=== PATIENT | female | born 1940 | race American Indian/Alaskan Native ===

== ENCOUNTER 2018-08-02 21:30 | Emergency (ER) | payer MEDICARE ==
--- NOTE | 2018-08-02 21:56 | Emergency Department Report ---
Blank Doc - Documentation Documentation: This is a 78 y.o. female that presents to ER with chest pain that is intermitt ent. Patient states pain has resolved. She reports pain usually last for 15 mins to 20 minutes for a few weeks. Patient states pain lasted for 45 minutes today and usually don't last long. Current smoker 1/2 ppd x 50 years. Ordered: labs Fast track for further evaluation.
[2018-08-02] MEDS ORDERED: ASPIRIN PO ONE (21:57)
[2018-08-02 21:58] VITALS: BP 167/83
[2018-08-02 22:30] LABS: Basophils # (Auto) 0.1 K/mm3 (0.0-0.1); Eosinophils # (Auto) 0.3 K/mm3 (0.0-0.4); Eosinophils % (Auto) 5.2 % (0.0-4.3); Hematocrit 42.5 % (30.3-42.9); Hemoglobin 14.8 gm/dl (10.1-14.3); Lymphocytes # (Auto) 1.8 K/mm3 (1.2-5.4); Lymphocytes % (Auto) 33.7 % (13.4-35.0); Mean Corpuscular HGB Conc 35 % (30-34); Mean Corpuscular Volume 97 fl (79-97); Monocytes # (Auto) 0.5 K/mm3 (0.0-0.8); Monocytes % (Auto) 9.4 % (0.0-7.3); Platelet Count 168 K/mm3 (140-440); Red Blood Count 4.37 M/mm3 (3.65-5.03); Red Cell Distribution Width 13.5 % (13.2-15.2)
[2018-08-02 22:50] LABS: BUN/Creatinine Ratio 16; Blood Urea Nitrogen 13 mg/dL (7-17); Hemolysis Index 12
--- NOTE | 2018-08-03 00:36 | Emergency Department Report ---
ED Chest Pain HPI - General Chief Complaint: Chest Pain Stated Complaint: CHEST PAIN Time Seen by Provider: 08/02/18 21:51 Source: patient, RN notes reviewed Mode of arrival: Ambulatory Limitations: No Limitations - History of Present Illness Initial Comments: This is a 78-year-old female who is not known to this provider previously. The patient recently moved here from [place]. She complains of burning central chest pain, present intermittently for 2 weeks, which does not radiate and to the back, arms or neck. There is no vomiting, diaphoresis or shortness of breath. No recent airplane trips greater than 4 hours, no syncope, no abdominal pain, no leg pain, leg swelling. No recent aspirin use or cocaine use. No vomiting, diaphoresis or shortness of breath. MD Complaint: chest pain -: Gradual, week(s) Onset: during rest Pain Location: substernal Pain Radiation: none Severity: mild, moderate Severity scale (0 -10): 4 Quality: other Consistency: intermittent Improves With: nothing Worsens With: nothing Aspirin use within the Past 7 Days: (0) No - Related Data On Oral Contraceptives: No Previous Rx's Medication Instructions Recorded Last Taken Type Aspirin [Aspirin BABY CHEW TAB] 81 mg PO QDAY #30 tab.chew 08/03/18 Unknown Rx Allergies Allergy/AdvReac Type Severity Reaction Status Date / Time No Known Allergies Allergy Verified 08/02/18 21:36 Heart Score - HEART Score History: Slightly suspicious EKG: Non-specific Age: > 65 Risk factors: No known risk factors Troponin: < normal limit HEART Score: 3 - Critical Actions Critical Actions: 0-3 pts:0.9-1.7%risk of adverse cardiac event.Candidate for discharge ED Review of Systems ROS: Stated complaint: CHEST PAIN Other details as noted in HPI Constitutional: denies: fever, malaise Eyes: denies: vision change ENT: denies: epistaxis Respiratory: denies: cough Cardiovascular: chest pain Gastrointestinal: denies: nausea, vomiting, hematemesis, melena, hematochezia Genitourinary: denies: dysuria Musculoskeletal: denies: back pain Neurological: denies: headache, weakness Psychiatric: denies: anxiety ED Past Medical Hx - Past Medical History Previous Medical History?: Yes Additional medical history: Bowel Obstruction - Surgical History Past Surgical History?: Yes Hx Cholecystectomy: Yes Additional Surgical History: Hysterectomy, Bowel Surgery - Social History Smoking Status: Current Every Day Smoker Substance Use Type: Alcohol - Medications Home Medications: Home Medications Medication Instructions Recorded Confirmed Last Taken Type Aspirin [Aspirin BABY CHEW TAB] 81 mg PO QDAY #30 tab.chew 08/03/18 Unknown Rx ED Physical Exam - General Limitations: No Limitations General appearance: alert, in no apparent distress - Head Head exam: Present: atraumatic, normocephalic, normal inspection - Eye Eye exam: Present: normal appearance, EOMI - ENT ENT exam: Present: normal exam, normal orophraynx, normal external ear exam - Neck Neck exam: Present: normal inspection, full ROM - Respiratory Respiratory exam: Absent: decreased breath sounds - Extremities Exam Extremities exam: Present: full ROM - Back Exam Back exam: Present: full ROM - Neurological Exam Neurological exam: Present: alert, oriented X3, other (patient moving 4 ext remities. There is no facial droop. The tongue is midline. Walking with a steady gait.) - Psychiatric Psychiatric exam: Present: normal affect, normal mood - Skin Skin exam: Present: dry ED Course Vital Signs 08/02/18 21:53 Temperature 97 F L Pulse Rate 78 Respiratory 18 Rate Blood Pressure 167/83 ALTAGRACIA score - Altagracia Score Age > 65: (1) Yes Aspirin use within the Past 7 Days: (0) No 3 or more CAD Risk Factors: (0) No 2 or more Angina events in past 24 hrs: (0) No Known CAD with more than 50% Stenosis: (0) No Elevated Cardiac Markers: (0) No ST Deviation Greater than 0.5mm: (0) No ALTAGRACIA Score: 1 ED Medical Decision Making - Lab Data Result diagrams: 08/02/18 22:02 08/02/18 22:02 Vital Signs 08/02/18 21:53 Temperature 97 F L Pulse Rate 78 Respiratory 18 Rate Blood Pressure 167/83 Lab Results 08/02/18 08/02/18 Range/Units 22:02 22:02 WBC 5.4 (4.5-11.0) K/mm3 RBC 4.37 (3.65-5.03) M/mm3 Hgb 14.8 H (10.1-14.3) gm/dl Hct 42.5 (30.3-42.9) % MCV 97 (79-97) fl MCH 34 H (28-32) pg MCHC 35 H (30-34) % RDW 13.5 (13.2-15.2) % Plt Count 168 (140-440) K/mm3 Lymph % (Auto) 33.7 (13.4-35.0) % [place] % (Auto) 9.4 H (0.0-7.3) % Eos % (Auto) 5.2 H (0.0-4.3) % Baso % (Auto) 2.0 H (0.0-1.8) % Lymph # 1.8 (1.2-5.4) K/mm3 [place] # 0.5 (0.0-0.8) K/mm3 Eos # 0.3 (0.0-0.4) K/mm3 Baso # 0.1 (0.0-0.1) K/mm3 Seg Neutrophils % 49.7 (40.0-70.0) % Seg Neutrophils # 2.7 (1.8-7.7) K/mm3 Sodium 138 (137-145) mmol/L Potassium 4.4 (3.6-5.0) mmol/L Chloride 100.3 (98-107) mmol/L Carbon Dioxide 27 (22-30) mmol/L Anion Gap 15 mmol/L BUN 13 (7-17) mg/dL Creatinine 0.8 (0.7-1.2) mg/dL Estimated GFR > 60 ml/min BUN/Creatinine Ratio 16 % Glucose 98 (65-100) mg/dL Calcium 9.0 (8.4-10.2) mg/dL Troponin T < 0.010 (0.00-0.029) ng/mL - EKG Data -: EKG Interpreted by Me - Medical Decision Making Differential diagnosis, including but not limited to: GERD, gastritis, hiatal hernia, pneumonia, acute coronary syndrome Assessment and plan: 78-year-old female with chest pain intermittently 2 weeks. The patient is afebrile with less far unremarkable vital signs. However, the patient refused to change out of her gown, and be attached to a conveyor monitor. She would not allow this provider to do a cardiac, pulmonary or abdominal exam ination. It was explained to the patient's that it is typically this provider's practice to perform a full history and detailed physical examination for all patients, and that an appropriate physical examination will be part of the appropriate initial medical workup. The patient is alert and oriented 3, exhibits decision-making capacity, and is free from distracting injury. She indicates that she would like to leave and that she will follow up tomorrow with her primary care doctor. The risks of leaving without a complete medical workup and evaluation including , disability, paralysis, loss of quality of life, were discussed with the patient, who verbalized understanding. This is witnessed by nurse DARNELL SHER The patient was counseled that she may return to the emergency room right away if and when she changes her mind, and she will be started on aspirin, and instructions to follow up with local cardiology practices, if she elects to follow up as an outpatient. Critical care attestation.: If time is entered above; I have spent that time in minutes in the direct care of this critically ill patient, excluding procedure time. ED Disposition Clinical Impression: History of chest pain Disposition: [id number] LEFT AGAINST MED ADVICE Is pt being admited?: No Does the pt Need Aspirin: No Condition: Undetermined Instructions: Chest Pain (ED) Additional Instructions: As we discussed, you have left the hospital/emergency room AGAINST MEDICAL ADVICE. By leaving, you risked , disability, paralysis, permanent loss of quality of life. The ER is open 24 hours a day, 7 days a week. It never closes. Please return to the emergency room right away if and when you change your mind. If you decide not to return to the emergency room, please follow-up with the listed physician referrals as soon as possible. Avoid consumption of Motrin, ibuprofen, Naprosyn, Aleve, heavy spicy foods. Take the medication aspirin as directed. Prescriptions: Aspirin [Aspirin BABY CHEW TAB] 81 mg PO QDAY #30 tab.chew Referrals: PRIMARY CARE, [Primary Care Provider] - 3-5 Days [facility] [Provider Group] - 3-5 Days [facility] [Provider Group] - 3-5 Days [facility] [Provider Group] - 3-5 Days Forms: AMA Form
== END 2018-08-03 00:43 | disposition left against medical advice (07) ==
LOC: ED 21:30
DX: R07.2 Precordial pain (principal); F17.200 Nicotine dependence, unspecified, uncomplicated; Z90.49 Acquired absence of other specified parts of digestive tract; Z90.710 Acquired absence of both cervix and uterus; Z79.82 Long term (current) use of aspirin
CPT/HCPCS: 36415; 80048; 84484; 85025; 93005; 93010; 99284